=== PATIENT | female | born 1950 | race American Indian/Alaskan Native ===

== ENCOUNTER 2016-10-21 14:43 | Emergency (ER) | payer SELFPAY ==
[2016-10-21] MEDS ORDERED: TORADOL IV ONE (14:56)
[2016-10-21] MEDS ORDERED: ZOFRAN IV ONE (15:14)
[2016-10-21] MEDS ORDERED: MORPHINE IV ONE (15:14)
--- NOTE | 2016-10-21 15:39 | Emergency Department Report ---
Entered by ANTONIO CLEMENS, acting as scribe for HERBERTH TORRES NP. Chief Complaint: Extremity Injury, Lower Stated Complaint: GROIN PAIN LEFT SIDE Time Seen by Provider: 10/21/16 14:52 - HPI History of Present Illness: 65 y/o female presents with throbbing left hip pain that started 1 week ago and radiates down the leg. Pt notes that pain started while she was walking. Pt denies any injury to the left hip or leg. Medication includes aspirin with mild relief. - ROS Review of Systems: + left hip pain - injury - Exam Vital Signs: Vital Signs 10/21/16 10/21/16 14:48 15:30 Temperature 99.2 F Pulse Rate 108 H Respiratory 22 20 Rate Blood Pressure 178/87 O2 Sat by Pulse 99 Oximetry Physical Exam: Extremity: 2+ DP pulses, Decreased ROM in left hip secondary to pain. MSE screening note: Focused history and physical exam performed. Due to findings the following was ordered: xr, meds ED Disposition for MSE Condition: Stable This documentation as recorded by the scribe,ANTONIO CLEMENS,accurately reflects the service I personally performed and the decisions made by MELISSA michael TRACY M, NP.
--- NOTE | 2016-10-21 16:06 | XRay Report ---
LEFT HIP RADIOGRAPHS INDICATION: Pain. COMPARISON: None similar. FINDINGS: An AP pelvic radiograph with frog-leg projection of the left hip demonstrate intact articulation. Imaged bilateral SI and hip joints appear intact. Lower lumbar degenerative changes. Small pelvic phleboliths. Nonobstructive bowel gas pattern. CONCLUSION: No acute radiographic abnormality. Thank you for the opportunity to participate in this patient's care.
[2016-10-21] MEDS ORDERED: DILAUDID IV ONE (17:09)
[2016-10-21] MEDS ORDERED: NACL 0.9% 1000 ML 1,000 ML IV ONE (17:11)
--- NOTE | 2016-10-21 17:14 | Emergency Department Report ---
HPI - General Chief Complaint: Extremity Injury, Lower Time Seen by Provider: 10/21/16 14:51 - HPI HPI: 65 y.o -Italian female presents to ED with severe left flank pain radiating to the hip area. Patient stated around 11:00 the pain, sharp in nature started. She woke up fine this morning took a walk, the difficulty started then she thought it was due to the quality then shoes that she walked with. The pain continued to worsen today requiring her to seek emergency care. ED Past Medical Hx - Past Medical History Hx Hypertension: Yes Hx Psychiatric Treatment: Yes (depression,anxiety) - Surgical History Past Surgical History?: No Additional Surgical History: JERMAINE - Family History Family history: hypertension - Social History Smoking Status: Never Smoker Substance Use Type: None - Medications Home Medications: Home Medications Medication Instructions Recorded Confirmed Last Taken Type Atenolol/Chlorthalidone [Tenoretic 1 tab PO DAILY 05/23/14 05/23/14 Unknown History 50-25 mg] methOCARBAMOL [Robaxin TAB] 500 mg PO Q6H PRN #20 tablet 10/21/16 Unknown Rx ED Review of Systems ROS: Stated complaint: GROIN PAIN LEFT SIDE Other details as noted in HPI Comment: All other systems reviewed and negative Gastrointestinal: abdominal pain Musculoskeletal: arthralgia Physical Exam - Physical Exam Vital Signs: Vital Signs 10/21/16 10/21/16 14:48 15:30 Temperature 99.2 F Pulse Rate 108 H Respiratory 22 20 Rate Blood Pressure 178/87 O2 Sat by Pulse 99 Oximetry Physical Exam: GENERAL APPEARANCE: Well developed, well nourished, alert and cooperative, and appears to be in no acute distress. HEAD: normocephalic. EYES: PERRL, EOMI. Fundi normal, vision is grossly intact. EARS: External auditory canals and tympanic membranes clear, hearing grossly intact. NOSE: No nasal discharge. THROAT: Oral cavity and pharynx normal. No inflammation, swelling, exudate, or lesions. Teeth and gingiva in good general condition. NECK: Neck supple, non-tender without lymphadenopathy, masses or thyromegaly. CARDIAC: Normal S1 and S2. No S3, S4 or murmurs. Rhythm is regular. There is no peripheral edema, cyanosis or pallor. Extremities are warm and well perfused. Capillary refill is less than 2 seconds. No carotid bruits. LUNGS: Clear to auscultation and percussion without rales, rhonchi, wheezing or diminished breath sounds. ABDOMEN: Positive bowel sounds. Soft, nondistended, nontender. No guarding or rebound. No masses. MUSKULOSKELETAL: Adequately aligned spine. Decreased range of motion on the left hip area, due to pain. BACK: Examination of the spine reveals normal gait and posture, no spinal deformity, symmetry of spinal muscles, without tenderness, decreased range of motion or muscular spasm. EXTREMITIES: No significant deformity or joint abnormality. No edema. Peripheral pulses intact. No varicosities. LOWER EXTREMITY: Examination of both feet reveals all toes to be normal in size and symmetry, normal range of motion, normal sensation with distal capillary filling of less than 2 seconds without tenderness, swelling, discoloration, nodules, weakness or deformity; examination of both ankles, knees, legs, and hips reveals normal range of motion, normal sensation without tenderness, swelling, discoloration, crepitus, weakness or deformity. NEUROLOGICAL: CN II-XII intact. Strength and sensation symmetric and intact throughout. Reflexes 2+ throughout. Cerebellar testing normal. SKIN: Skin normal color, texture and turgor with no lesions or eruptions. PSYCHIATRIC: The mental examination revealed the patient was oriented to person , place, and time. The patient was able to demonstrate good judgement and reason , without hallucinations, abnormal affect or abnormal behaviors during the examination. Patient is not suicidal. ED Course Vital Signs 10/21/16 10/21/16 14:48 15:30 Temperature 99.2 F Pulse Rate 108 H Respiratory 22 20 Rate Blood Pressure 178/87 O2 Sat by Pulse 99 Oximetry - Reevaluation(s) Reevaluation #1: 10/21/16 19:46 Pain much improved, wants to go home ED Medical Decision Making - Lab Data Result diagrams: 10/21/16 17:35 10/21/16 17:35 Critical care attestation.: If time is entered above; I have spent that time in minutes in the direct care of this critically ill patient, excluding procedure time. ED Disposition Clinical Impression: Hip pain Disposition: - TO HOME OR SELFCARE Is pt being admited?: No Does the pt Need Aspirin: No Condition: Stable Prescriptions: methOCARBAMOL [Robaxin TAB] 500 mg PO Q6H PRN #20 tablet PRN Reason: Pain Referrals: PRIMARY CARE, [Primary Care Provider] - 3-5 Days TOMAS EVERETT MD [Staff Physician] - 3-5 Days
[2016-10-21 18:07] LABS: Basophils % (Auto) 0.2 % (0.0-1.8); Eosinophils % (Auto) 0.1 % (0.0-4.3); Hemoglobin 12.8 gm/dl (10.1-14.3); Mean Corpuscular HGB Conc 34 % (30-34); Mean Corpuscular Hemoglobin 32 pg (28-32); Mean Corpuscular Volume 96 fl (79-97); Platelet Count 155 K/mm3 (140-440); Red Blood Count 3.97 M/mm3 (3.65-5.03); Red Cell Distribution Width 14.1 % (13.2-15.2); White Blood Count 7.8 K/mm3 (4.5-11.0)
[2016-10-21 18:28] LABS: Albumin 4.1 g/dL (3.9-5); Albumin/Globulin Ratio 1.2 %; BUN/Creatinine Ratio 15.62; Bilirubin,Total 0.3 mg/dL (0.1-1.2); Calcium 9.5 mg/dL (8.4-10.2); Chloride 101.9 mmol/L (98-107); Potassium 4.5 mmol/L (3.6-5.0); Total Protein 7.4 g/dL (6.3-8.2)
[2016-10-21] MEDS ORDERED: ROBAXIN PO SCH (21:00)
[2016-10-21 21:08] VITALS: BP 105/79
== END 2016-10-21 20:10 | disposition home or self-care (01) ==
LOC: ED 14:43
DX: M25.552 Pain in left hip (principal); I10 Essential (primary) hypertension; F41.9 Anxiety disorder, unspecified; F32.9 Major depressive disorder, single episode, unspecified
CPT/HCPCS: 36415; 73502; 80053; 85025; 96361; 96374; 96375; 99284; J1170; J1885; J2270; J2405; J7030